=== PATIENT | female | born 1950 | race Caucasian/White ===

== ENCOUNTER 2018-02-03 06:29 | Observation (INO) ==
[2018-02-03] MEDS ORDERED: ASPIRIN 81 MG TAB.CHEW ONE (06:34)
[2018-02-03] MEDS ORDERED: DILTIAZEM 25 MG/5 ML VIAL IV ONE (06:40)
[2018-02-03] MEDS ORDERED: DILTIAZEM 125 MG in DEXTROSE 5% IN WATER 100 ML IV SCH ×2 (06:45→18:45)
--- NOTE | 2018-02-03 06:50 | Emergency Department Note ---
Arrhythmia/Palpitations HPI - General Chief Complaint: Arrhythmia/Palpitations Stated Complaint: arrhythmia Time Seen by Provider: 02/03/18 06:45 Source: patient Mode of arrival: ambulatory Limitations: no limitations - History of Present Illness HPI Narrative: 67-year-old female with a history of palpitations that started at approximately 1:00 this morning. Denies any chest pain. She has had a history of these palpitations over the past year and she was being worked up by Dr. Cook most recently had an echo last month. Which was normal. She states that normally the palpitations last for short time. She denies any shortness of breath there is no chest pain and there is no radiation of pain. She is currently on no medications or blood thinners. She is not in any acute distress. Of her heart rate is tachycardic running approximately 130 and irregular. Pulse ox is 99% blood pressure is 191/149 alert cooperative oriented 3 - Related Data Allergies Allergy/AdvReac Type Severity Reaction Status Date / Time No Known Drug Allergies Allergy Unverified 02/03/18 06:30 Review of Systems All systems ED: reviewed and negative except as stated. Constitutional: Denies: fever, chills Eyes: Denies: eye pain ENT ED: Denies: ear pain, throat pain Cardiovascular: Reports: chest pain, palpitations. Denies: dyspnea on exertion , orthopnea, edema, syncope, paroxysmal nocturnal dyspnea Respiratory: Denies: shortness of breath, cough, wheezes, phlegm Gastrointestinal: Reports: abdominal pain. Denies: nausea, vomiting Genitourinary: Denies: dysuria, urgency, frequency Musculoskeletal: Denies: back pain, joint swelling Integumentary: Denies: rash, lesions Neurological: Denies: headache Psychiatric: Denies: anxiety, depression Endocrine: Denies: fatigue Hematological/Lymphatic: Denies: easy bleeding Past Medical History - Past Medical History Medical history: Reports: non-contributory Surgical history ED: Reports: non-contributory - Social History smoking status: Never smoker Alcohol use: Reports: Rarely Drug use: Reports: none Physical Exam Limitations: no limitations General appearance: alert Head: atraumatic Eye: Present: PERRL ENT: normal exam, normal oropharynx Neck: Present: normal inspection, full ROM. Absent: trachea midline Chest: Present: normal inspection, symmetric chest wall rise. Absent: tenderness Respiratory: Present: normal lung sounds bilaterally. Absent: respiratory distress, wheezes Cardiovascular: Present: tachycardia, irregular rhythm. Absent: systolic murmur , diastolic murmur, rubs Abdominal: Present: soft. Absent: distention, tenderness, guarding Extremities: Present: normal inspection, full ROM. Absent: tenderness Back: Present: normal inspection, full ROM. Absent: tenderness Neurological: Present: alert, oriented X3 Psychiatric: Present: normal affect, normal mood. Absent: depressed Skin: Absent: warm, dry Course Vital Signs Temperature 98.0 F 02/03/18 06:30 Pulse Rate 125 H 02/03/18 06:30 Respiratory Rate 19 02/03/18 06:30 Blood Pressure 191/149 02/03/18 06:30 Pulse Oximetry (%) 99 02/03/18 06:30 Temperature 98.0 F 02/03/18 06:30 Pulse Rate 69 02/03/18 08:36 Respiratory Rate 17 02/03/18 08:36 Blood Pressure 150/99 02/03/18 08:31 Pulse Oximetry (%) 98 02/03/18 08:36 Arrhythmia/Palpitations - [facility] Narrative Medical decision making narrative: Laboratory tests have returned which are all normal. Patient transferred to the care of Dr. Isaias ontiveros 0900 hrs. Patient still in A. fib but rate controlled 70s and 80s - Lab Data Result diagrams: 02/03/18 07:01 02/03/18 07:01 Lab Results 02/03/18 02/03/18 02/03/18 Range/Units 07:01 07:01 07:01 WBC 7.6 (4.5-11.0) K/mcL RBC 5.13 (4.00-5.20) M/mcL Hgb 15.6 H (12.0-15.0) g/dL Hct 46.0 (36.0-48.0) % MCV 89.7 (80.0-100.0) fL MCH 30.3 (26.0-34.0) pg MCHC 33.8 (31.0-36.0) g/dL RDW 13.0 (11.5-14.5) % Plt Count 192 (140-440) K/mcL MPV 11.3 H (7.4-10.4) fL Gran % 66.7 (38.0-78.0) % Lymph % (Auto) 21.9 (15.5-49.0) % Esmeralda % (Auto) 8.8 (1.0-12.0) % Eos % (Auto) 2.3 (0.0-7.0) % Baso % (Auto) 0.3 (0.0-2.0) % Gran # 5.1 (1.8-8.0) K/mcL Lymph # (Auto) 1.7 (1.5-4.8) K/mcL Esmeralda # (Auto) 0.7 (0.1-0.9) K/mcL Eos # (Auto) 0.2 (0.0-0.7) K/mcL Baso # (Auto) 0 (0.0-0.3) K/mcL Sodium 142 (133-145) mmol/L Potassium 3.6 (3.3-5.1) mmol/L Chloride 101 (96-108) mmol/L Carbon Dioxide 26 (22-30) mmol/L Anion Gap 15.0 (8-16) BUN 28 H (8-23) mg/dl Creatinine 0.8 (0.6-1.1) mg/dl GFR Calculation 77 Glucose 113 H (70-105) mg/dL Calcium 9.1 (8.6-10.4) mg/dl Magnesium 2.1 (1.6-2.5) mg/dL Total Bilirubin 0.5 (0.0-1.0) mg/dL AST 20 (0-37) U/l ALT 41 H (0-40) U/l Alkaline Phosphatase 111 (39-117) U/L Total Creatine Kinase 74 (24-170) IU/L CK-MB (CK-2) 2.2 (0-2.9) ng/ml Troponin T < 0.01 (0-0.03) ng/ml Total Protein 7.3 (5.9-8.4) gm/dL Albumin 3.9 (3.2-5.2) gm/dL Globulin 3.4 (2.2-3.7) gm/dL Albumin/Globulin Ratio 1.1 (1.0-2.3) TSH (0.27-5.01) uIU/ml 02/03/18 Range/Units 07:01 WBC (4.5-11.0) K/mcL RBC (4.00-5.20) M/mcL Hgb (12.0-15.0) g/dL Hct (36.0-48.0) % MCV (80.0-100.0) fL MCH (26.0-34.0) pg MCHC (31.0-36.0) g/dL RDW (11.5-14.5) % Plt Count (140-440) K/mcL MPV (7.4-10.4) fL Gran % (38.0-78.0) % Lymph % (Auto) (15.5-49.0) % Esmeralda % (Auto) (1.0-12.0) % Eos % (Auto) (0.0-7.0) % Baso % (Auto) (0.0-2.0) % Gran # (1.8-8.0) K/mcL Lymph # (Auto) (1.5-4.8) K/mcL Esmeralda # (Auto) (0.1-0.9) K/mcL Eos # (Auto) (0.0-0.7) K/mcL Baso # (Auto) (0.0-0.3) K/mcL Sodium (133-145) mmol/L Potassium (3.3-5.1) mmol/L Chloride (96-108) mmol/L Carbon Dioxide (22-30) mmol/L Anion Gap (8-16) BUN (8-23) mg/dl Creatinine (0.6-1.1) mg/dl GFR Calculation Glucose (70-105) mg/dL Calcium (8.6-10.4) mg/dl Magnesium (1.6-2.5) mg/dL Total Bilirubin (0.0-1.0) mg/dL AST (0-37) U/l ALT (0-40) U/l Alkaline Phosphatase (39-117) U/L Total Creatine Kinase (24-170) IU/L CK-MB (CK-2) (0-2.9) ng/ml Troponin T (0-0.03) ng/ml Total Protein (5.9-8.4) gm/dL Albumin (3.2-5.2) gm/dL Globulin (2.2-3.7) gm/dL Albumin/Globulin Ratio (1.0-2.3) TSH 2.32 (0.27-5.01) uIU/ml Disposition Pt seen by SAFETY TECHNICIAN/PA only: No Referrals: Monet Cook MD [Primary Care Provider] -
[2018-02-03] MEDS ORDERED: ASPIRIN 81 MG TAB.CHEW CHEWED ONE (07:07)
--- NOTE | 2018-02-03 07:19 | XRay Report ---
INDICATION: Arrhythmia TECHNIQUE: AP chest x-ray,portable upright COMPARISON: None FINDINGS:Lungs are negative. No parenchymal infiltrate or mass. Cardiac silhouette and vascular pattern are normal. No pulmonary edema. No pulmonary congestion. No acute abnormality IMPRESSION: Negative AP chest x-ray Interpreted and Authenticated by: Jose Maria Ruiz 02/03/18
[2018-02-03 07:42] LABS: Basophils # (Auto) 0 K/mcL (0.0-0.3); Basophils % (Auto) 0.3 % (0.0-2.0); Eosinophils # (Auto) 0.2 K/mcL (0.0-0.7); Eosinophils % (Auto) 2.3 % (0.0-7.0); Granulocytes % (Auto) 66.7 % (38.0-78.0); Lymphocytes # (Auto) 1.7 K/mcL (1.5-4.8); Lymphocytes % (Auto) 21.9 % (15.5-49.0); Mean Cell Volume 89.7 fL (80.0-100.0); Mean Corpuscular HGB Conc 33.8 g/dL (31.0-36.0); Mean Corpuscular Hemoglobin 30.3 pg (26.0-34.0); Monocytes # (Auto) 0.7 K/mcL (0.1-0.9); Monocytes % (Auto) 8.8 % (1.0-12.0); Platelet Count 192 K/mcL (140-440); RBC 5.13 M/mcL (4.00-5.20)
[2018-02-03 08:04] LABS: ALT/SGPT 41 U/l (0-40); Albumin 3.9 gm/dL (3.2-5.2); Albumin/Globulin Ratio 1.1 (1.0-2.3); Alkaline Phosphatase 111 U/L (39-117); Blood Urea Nitrogen 28 mg/dl (8-23); Creatine Kinase 74 IU/L (24-170); Creatine Kinase MB 2.2 ng/ml (0-2.9)
--- NOTE | 2018-02-03 10:12 | Emergency Department Note ---
Arrhythmia/Palpitations HPI - General Chief Complaint: Arrhythmia/Palpitations Stated Complaint: arrhythmia Time Seen by Provider: 02/03/18 06:45 Source: patient Mode of arrival: ambulatory Limitations: no limitations - Related Data Allergies Allergy/AdvReac Type Severity Reaction Status Date / Time No Known Drug Allergies Allergy Unverified 02/03/18 06:30 Review of Systems Constitutional: Denies: fever, chills Eyes: Denies: eye pain ENT ED: Denies: ear pain, throat pain Cardiovascular: Reports: chest pain, palpitations. Denies: dyspnea on exertion , orthopnea, edema, syncope, paroxysmal nocturnal dyspnea Respiratory: Denies: shortness of breath, cough, wheezes, phlegm Gastrointestinal: Reports: abdominal pain. Denies: nausea, vomiting Genitourinary: Denies: dysuria, urgency, frequency Musculoskeletal: Denies: back pain, joint swelling Integumentary: Denies: rash, lesions Neurological: Denies: headache Psychiatric: Denies: anxiety, depression Endocrine: Denies: fatigue Hematological/Lymphatic: Denies: easy bleeding Past Medical History - Past Medical History Medical history: Reports: non-contributory Surgical history ED: Reports: non-contributory - Social History smoking status: Never smoker Alcohol use: Reports: Rarely Drug use: Reports: none Physical Exam Limitations: no limitations General appearance: alert Course Vital Signs Temperature 98.0 F 02/03/18 06:30 Pulse Rate 125 H 02/03/18 06:30 Respiratory Rate 19 02/03/18 06:30 Blood Pressure 191/149 02/03/18 06:30 Pulse Oximetry (%) 99 02/03/18 06:30 Temperature 98.0 F 02/03/18 06:30 Pulse Rate 97 H 02/03/18 10:10 Respiratory Rate 12 02/03/18 10:10 Blood Pressure 157/86 02/03/18 10:01 Pulse Oximetry (%) 97 02/03/18 10:10 Arrhythmia/Palpitations - MDM Narrative Medical decision making narrative: This patient's atrial fib is reasonably can controlled with a heart rate between 80 and 100 on diltiazem 10 mg an hour. This is a new diagnosis for this patient. She did have an echocardiogram a week ago. We will admit her to telemetry for observation. - Lab Data Lab results reviewed: Yes I reviewed the patient's lab results. Result diagrams: 02/03/18 07:01 02/03/18 07:01 Lab Results 02/03/18 02/03/18 02/03/18 Range/Units 07:01 07:01 07:01 WBC 7.6 (4.5-11.0) K/mcL RBC 5.13 (4.00-5.20) M/mcL Hgb 15.6 H (12.0-15.0) g/dL Hct 46.0 (36.0-48.0) % MCV 89.7 (80.0-100.0) fL MCH 30.3 (26.0-34.0) pg MCHC 33.8 (31.0-36.0) g/dL RDW 13.0 (11.5-14.5) % Plt Count 192 (140-440) K/mcL MPV 11.3 H (7.4-10.4) fL Gran % 66.7 (38.0-78.0) % Lymph % (Auto) 21.9 (15.5-49.0) % Major % (Auto) 8.8 (1.0-12.0) % Eos % (Auto) 2.3 (0.0-7.0) % Baso % (Auto) 0.3 (0.0-2.0) % Gran # 5.1 (1.8-8.0) K/mcL Lymph # (Auto) 1.7 (1.5-4.8) K/mcL Major # (Auto) 0.7 (0.1-0.9) K/mcL Eos # (Auto) 0.2 (0.0-0.7) K/mcL Baso # (Auto) 0 (0.0-0.3) K/mcL Sodium 142 (133-145) mmol/L Potassium 3.6 (3.3-5.1) mmol/L Chloride 101 (96-108) mmol/L Carbon Dioxide 26 (22-30) mmol/L Anion Gap 15.0 (8-16) BUN 28 H (8-23) mg/dl Creatinine 0.8 (0.6-1.1) mg/dl GFR Calculation 77 Glucose 113 H (70-105) mg/dL Calcium 9.1 (8.6-10.4) mg/dl Magnesium 2.1 (1.6-2.5) mg/dL Total Bilirubin 0.5 (0.0-1.0) mg/dL AST 20 (0-37) U/l ALT 41 H (0-40) U/l Alkaline Phosphatase 111 (39-117) U/L Total Creatine Kinase 74 (24-170) IU/L CK-MB (CK-2) 2.2 (0-2.9) ng/ml Troponin T < 0.01 (0-0.03) ng/ml Total Protein 7.3 (5.9-8.4) gm/dL Albumin 3.9 (3.2-5.2) gm/dL Globulin 3.4 (2.2-3.7) gm/dL Albumin/Globulin Ratio 1.1 (1.0-2.3) TSH (0.27-5.01) uIU/ml 02/03/18 Range/Units 07:01 WBC (4.5-11.0) K/mcL RBC (4.00-5.20) M/mcL Hgb (12.0-15.0) g/dL Hct (36.0-48.0) % MCV (80.0-100.0) fL MCH (26.0-34.0) pg MCHC (31.0-36.0) g/dL RDW (11.5-14.5) % Plt Count (140-440) K/mcL MPV (7.4-10.4) fL Gran % (38.0-78.0) % Lymph % (Auto) (15.5-49.0) % Major % (Auto) (1.0-12.0) % Eos % (Auto) (0.0-7.0) % Baso % (Auto) (0.0-2.0) % Gran # (1.8-8.0) K/mcL Lymph # (Auto) (1.5-4.8) K/mcL Major # (Auto) (0.1-0.9) K/mcL Eos # (Auto) (0.0-0.7) K/mcL Baso # (Auto) (0.0-0.3) K/mcL Sodium (133-145) mmol/L Potassium (3.3-5.1) mmol/L Chloride (96-108) mmol/L Carbon Dioxide (22-30) mmol/L Anion Gap (8-16) BUN (8-23) mg/dl Creatinine (0.6-1.1) mg/dl GFR Calculation Glucose (70-105) mg/dL Calcium (8.6-10.4) mg/dl Magnesium (1.6-2.5) mg/dL Total Bilirubin (0.0-1.0) mg/dL AST (0-37) U/l ALT (0-40) U/l Alkaline Phosphatase (39-117) U/L Total Creatine Kinase (24-170) IU/L CK-MB (CK-2) (0-2.9) ng/ml Troponin T (0-0.03) ng/ml Total Protein (5.9-8.4) gm/dL Albumin (3.2-5.2) gm/dL Globulin (2.2-3.7) gm/dL Albumin/Globulin Ratio (1.0-2.3) TSH 2.32 (0.27-5.01) uIU/ml - Radiology Data Radiology results reviewed: Yes I reviewed the patient's radiology results. Disposition Pt seen by TECHNICAL PROJECT COORDINATOR/PA only: No Clinical Impression: Atrial fibrillation Disposition: Xfer As Outpt/Obs ([facility]) Condition: Good Instructions: Atrial Fibrillation (ED) Referrals: Monet Cook MD [Primary Care Provider] - Time of Disposition: 10:12
[2018-02-03] MEDS ORDERED: ONDANSETRON 4 MG/2 ML VIAL IV PRN (11:42)
[2018-02-03] MEDS ORDERED: traZODone HCL 50 MG TABLET PO PRN (11:42)
[2018-02-03] MEDS ORDERED: guaiFENesin/CODEINE 10 ML UDC PO PRN (11:42)
[2018-02-03] MEDS ORDERED: POTASSIUM CHLORIDE 20 MEQ PACKET PO PRN (11:42)
[2018-02-03] MEDS ORDERED: ACETAMINOPHEN 1,000 MG/100 ML BOTTLE IV PRN (11:42)
[2018-02-03] MEDS ORDERED: MAGNESIUM SULFATE 2 GM/50 ML BAG IV PRN (11:42)
[2018-02-03] MEDS ORDERED: DILTIAZEM 125 MG in 0.9 % SODIUM CHLORIDE 100 ML IV SCH (11:42)
[2018-02-03] MEDS ORDERED: ACETAMINOPHEN 325 MG TABLET PO PRN (11:42)
[2018-02-03 12:07] LABS: C-Reactive Protein < 0.3 mg/dl (0.0-0.8)
--- NOTE | 2018-02-03 12:53 | Internal Med History&Physical ---
Medical - H&P: [facility] Patient information: Note initiated : 02/03/18 at 12:46 pm Service Date, if different from initiated Date: [] Patient: Maria E Sidhu 67 y/o F admitted on 02/03/18 for Arrhythmia. Chief Complaint: Palpitations/lightheadedness History of present illness: Ms. Sidhu is a 67 year old F comes in with racing heart rate/palpitations that started around 1 AM last night. Patient has history of intermittent atrial fibrillation and has been seen by Dr. Monet Cook. Patient also carries a history of poorly controlled hypertension. She comes into the ER with worsening dizziness lightheadedness and feeling very weak and anxious. Outpatient workup was significant for atrial fibrillation with RVR with rate around 140s. Patient was started on diltiazem drip. Patient notably had a echocardiogram done last week which shows EF 65% with diastolic dysfunction. No valvular abnormality. Patient denies rapid weight loss or heat intolerance or tremors. Patient denies changes in medication including taking [id number] medications. She denies chest pain shortness of breath or lower extremity swelling or recent surgery. Patient denies history of bleeding or clotting disorder. Patient denies prior history of stroke. She denies smoking or estrogen supplements. She has been Drinking wine for a while but quit 2 months ago. she cannot endorse to any event that might have triggered her sometimes but does endorse that taking deep breaths and drinking water helps with the symptoms. She is quite anxious and uses propranolol for symptoms. She is due for hip replacement surgery for her degenerative joint joint disease. REVIEW OF SYSTEMS Other than that a 10 point review of system was performed and is negative except for what is discussed above Medical - H&P: PM Medical history: poorly controlled hypertension Anxiety/panic attacks History of intermittent atrial fibrillation degenerative joint disease Medical - H&P: Meds Home Medications Medication Instructions Recorded Confirmed Type Propranolol HCl [Inderal Xl] 120 mg PO DAILY 02/03/18 02/03/18 History Valsartan/Hydrochlorothiazide 1 each PO DAILY 02/03/18 02/03/18 History [Valsartan-Hctz 160-12.5 mg Tab] Diltiazem HCl [Diltiazem 24Hr Cd] 120 mg PO DAILY #30 cap.er.24h 02/04/18 Rx Warfarin [Coumadin] 5 mg PO DAILY #30 tab 02/04/18 Rx Allergies Allergy/AdvReac Type Severity Reaction Status Date / Time No Known Drug Allergies Allergy Unverified 02/03/18 06:30 Medical - H&P: Exam - Constitutional Vitals: Temp Pulse Resp BP Pulse Ox 98.0 F 71 18 132/89 97 02/03/18 11:43 02/03/18 11:43 02/03/18 11:43 02/03/18 11:43 02/03/18 11:43 General appearance: average body habitus, no acute distress Exam: minimally anxious Pupils symmetric oral cavity dry no eardischarge Head normocephalic/atraumatic Neck no lymphadenopathy S1 and S2 irregular rhythm no murmur chest clear to auscultation bilaterally Abdomen soft nontender Lower extremity no cyanosis clubbing no lymphedema Skin no suspicious lesion psych alert cooperative Neuro nonfocal Medical - H&P: Reslt - Labs CBC & Chem 7: 02/04/18 03:30 02/04/18 03:30 Labs: Short CBC 02/03/18 Range/Units 07:01 WBC 7.6 (4.5-11.0) K/mcL Hgb 15.6 H (12.0-15.0) g/dL Hct 46.0 (36.0-48.0) % Plt Count 192 (140-440) K/mcL BMP 02/03/18 07:01 Sodium 142 Potassium 3.6 Chloride 101 Carbon Dioxide 26 BUN 28 H Creatinine 0.8 Glucose 113 H Calcium 9.1 Cardiac Enzymes 02/03/18 02/03/18 Range/Units 07:01 07:01 Total Creatine Kinase 74 (24-170) IU/L CK-MB (CK-2) 2.2 (0-2.9) ng/ml Troponin T < 0.01 (0-0.03) ng/ml Liver Function 02/03/18 Range/Units 07:01 Total Bilirubin 0.5 (0.0-1.0) mg/dL AST 20 (0-37) U/l ALT 41 H (0-40) U/l Alkaline Phosphatase 111 (39-117) U/L Albumin 3.9 (3.2-5.2) gm/dL Medical - H&P: A/P (1) Atrial fibrillation with RVR Current visit: Yes Status: Acute Assessment- 67-year-old with atrial fibrillation with RVR. * A. fib with RVR- rate controlled on diltiazem drip. Transition to oral diltiazem. Echocardiogram reviewed. No valvular lesions/normal EF. Evidence of diastolic dysfunction. chads score 2 mandating anticoagulation.Likely secondary to suboptimally controlled hypertension * hypertension-continue existing medications * anxiety disorder-continue home dose propranolol * Full code * Prophylaxis heparin plan * telemetry observation admit * Diltiazem drip * Transition to oral rate control measures * Pre-existing medical condition management as above (2) Atrial fibrillation Current visit: Yes Status: Acute Medical - H&P: Qual - VTE Deep Vein Thrombosis/Pulmonary Embolism Present on Admission: No
[2018-02-03] MEDS: METOPROLOL TARTRATE 5 MG/5 ML VIAL IV SCH ×3 (13:17→13:38)
[2018-02-03] MEDS: 0.9 % SODIUM CHLORIDE 10 ML SYRINGE IV SCH ×2 (13:38→21:24)
[2018-02-03] MEDS: 0.9 % SODIUM CHLORIDE 500 ML IV SCH (13:50)
[2018-02-03] MEDS: DILTIAZEM 30 MG TABLET PO SCH (17:23)
[2018-02-03] MEDS ORDERED: DILTIAZEM 125 MG in 0.9 % SODIUM CHLORIDE 100 ML IV PRN (17:45)
[2018-02-03] MEDS ORDERED: SENNOSIDES/DOCUSATE SODIUM 1 TAB TABLET PO SCH (21:00)
[2018-02-03] MEDS: HEPARIN 5,000 UNIT/ML VIAL SQ SCH (21:23)
[2018-02-03] MEDS: DOCUSATE SODIUM 100 MG CAPSULE PO SCH (21:24)
[2018-02-04] MEDS: DILTIAZEM 30 MG TABLET PO SCH ×2 (00:08→05:54)
[2018-02-04 04:56] LABS: Mean Cell Volume 90.3 fL (80.0-100.0); Mean Corpuscular HGB Conc 33.8 g/dL (31.0-36.0); Mean Corpuscular Hemoglobin 30.5 pg (26.0-34.0); Platelet Count 181 K/mcL (140-440); RBC 5.16 M/mcL (4.00-5.20); Red Cell Distribution Width 13.4 % (11.5-14.5)
[2018-02-04 05:29] LABS: ALT/SGPT 31 U/l (0-40); Albumin 3.7 gm/dL (3.2-5.2); Albumin/Globulin Ratio 1.2 (1.0-2.3); Alkaline Phosphatase 98 U/L (39-117); Bilirubin,Direct < 0.2 mg/dL (0.0-0.3); Blood Urea Nitrogen 27 mg/dl (8-23); Gamma Glutamyl Transpeptidase 19 U/L (5-36); Uric Acid 5.4 mg/dL (2.5-8.0)
[2018-02-04 05:35] LABS: Basophils % (Manual) 1 % (0-2); Eosinophils % (Manual) 2 % (0-7); Lymphocytes % 39 % (15-49); Monocytes % (Manual) 7 % (1-12); Platelet Estimate NORMAL (NORMAL); RBC Morphology NORMAL (NORMAL); Segmented Neutrophils % 50 % (38-78)
[2018-02-04] MEDS: 0.9 % SODIUM CHLORIDE 10 ML SYRINGE IV SCH ×4 (07:00→14:11)
[2018-02-04] MEDS ORDERED: DILTIAZEM 120 MG CAP.XL.24H PO ONE (07:05)
[2018-02-04] MEDS ORDERED: WARFARIN 5 MG TABLET PO ONE (07:06)
--- NOTE | 2018-02-04 07:22 | Discharge Summary ---
Medical - DS: Prov Patient information: Note initiated : 02/04/18 at 7:12 am Service Date, if different from initiated Date: [] Patient: Maria E Sidhu 67 y/o F admitted on 02/03/18 for Arrhythmia. Chief Complaint: [] Date of admission: 02/03/18 11:38 Discharge date: 02/04/18 Primary care physician: Monet Cook Consults: 02/03/18 10:09 Consult to Physician [CONS] Stat Comment: Consulting Provider: Pete Moore Reason For Exam: Physician to Consult Medical - DS: Meds - Discharge Medications Prescriptions: Diltiazem HCl [Diltiazem 24Hr Cd] 120 mg PO DAILY #30 cap.er.24h Warfarin [Coumadin] 5 mg PO DAILY #30 tab Active and Home Medications: Home Medications Propranolol HCl [Inderal Xl] 120 mg PO DAILY 02/03/18 [History Confirmed Last Taken 02/02/18] Valsartan/Hydrochlorothiazide [Valsartan-Hctz 160-12.5 mg Tab] 1 each PO DAILY 02/03/18 [History Confirmed 02/03/18 Last Taken 02/02/18] Diltiazem HCl [Diltiazem 24Hr Cd] 120 mg PO DAILY #30 cap.er.24h 02/04/18 [Rx Last Taken Unknown] Warfarin [Coumadin] 5 mg PO DAILY #30 tab 02/04/18 [Rx Last Taken Unknown] Medical - DS: Hosp Hospital course: DISCHARGE DIAGNOSIS * A. fib with RVR- rate controlled on diltiazem drip. transitioned to diltiazem extended release. Start Coumadin in light of chads score 2 and high risk CVA. echocardiogram no evidence of valvular dysfunction. Evidence of diastolic dysfunction. chads score 2 mandating anticoagulation. patient will require outpatient cardiology follow-up for electrophysiologic study for possibly a flutter ablation if indicated. PCP to coordinate outpatient cardiology follow-up * poorly controlled hypertension-continue existing medications. start Cardizem CD. Systolics around 120 * anxiety disorder-continue as needed anxiolytics BRIEF HOSPITAL COURSE Ms. Sidhu is a 67 year old F comes in with racing heart rate/palpitations that started around 1 AM last night. Patient has history of intermittent atrial fibrillation and has been seen by Dr. Monet Black. Patient also carries a history of poorly controlled hypertension. She comes into the ER with worsening dizziness lightheadedness and feeling very weak and anxious. Outpatient workup was significant for atrial fibrillation with RVR with rate around 140s. Patient was started on diltiazem drip. Patient notably had a echocardiogram done last week which shows EF 65% with diastolic dysfunction. No valvular abnormality. Patient denies rapid weight loss or heat intolerance or tremors. Patient denies changes in medication including taking [id number] medications. She denies chest pain shortness of breath or lower extremity swelling or recent surgery. Patient denies history of bleeding or clotting disorder. Patient denies prior history of stroke. She denies smoking or estrogen supplements. She has been Drinking wine for a while but quit 2 months ago. February 04-patient doing well. No overnight events. No concerns per staff. Tolerating diet. Heart rate stable between mid 40s to 70s. Diltiazem dose lowered from 240 to 120s. Anticoagulation started on Coumadin in light of chads score 2. Patient will follow with primary care physician for further optimization of A. fib flutter management/Coumadin dosing based on INR. Patient will need cardiology follow-up as outpatient Discharge diagnosis: . - Time Spent with Patient Total time spent providing and/or coordinating discharge services: Greater than 30 minutes Medical - DS: Exam - Constitutional Vitals: Vital Signs Temp Pulse Pulse Resp BP BP Pulse Ox 02/04/18 06:43 97.6 F 16 140/85 98 02/04/18 04:00 97.7 F 64 12 128/81 96 02/04/18 00:01 113/71 02/03/18 23:59 98.3 F 18 113/71 95 02/03/18 23:46 110/82 02/03/18 23:32 106/78 02/03/18 23:16 114/69 02/03/18 23:01 111/62 02/03/18 22:48 118/57 02/03/18 22:31 130/64 02/03/18 22:16 113/64 02/03/18 22:01 117/72 02/03/18 21:46 116/78 02/03/18 21:31 136/85 02/03/18 21:16 118/72 02/03/18 21:01 111/70 03/22/18 20:46 123/64 02/03/18 20:31 112/76 02/03/18 20:16 119/75 18 20:01 133/73 18 19:46 122/73 18 19:31 124/82 02/03/18 19:16 122/72 18 19:01 97.7 F 126/75 18 18:46 131/94 18 18:31 113/80 18 18:16 118/73 18 18:00 134/73 18 17:46 108/58 18 17:31 114/82 18 17:16 122/77 18 17:01 122/78 18 16:46 121/72 18 16:31 119/64 18 16:16 117/71 18 16:01 98.6 F 16 109/64 96 18 15:53 116/76 18 15:42 97.3 F 16 128/72 96 18 15:31 125/70 18 15:15 128/72 18 15:10 113/73 18 15:01 108/74 18 14:45 140/114 18 14:31 130/78 18 14:16 112/76 18 14:01 117/98 18 13:46 135/70 18 13:36 141/79 18 13:31 146/79 18 13:27 131/83 18 13:16 136/76 18 13:01 135/75 18 12:46 160/99 18 12:31 124/80 18 12:23 146/104 18 12:16 167/93 18 12:10 71 18 131/118 95 18 11:46 132/89 18 11:43 98.0 F 71 18 132/89 97 18 11:38 98.9 F 88 16 165/89 97 02/03/18 11:35 18 132/89 02/03/18 11:31 44 L 12 132/89 97 02/03/18 11:15 13 147/90 02/03/18 11:01 18 121/84 02/03/18 10:46 26 H 148/93 02/03/18 10:38 15 02/03/18 10:31 22 153/83 02/03/18 10:16 88 17 157/83 97 02/03/18 10:10 97 H 12 97 02/03/18 10:01 19 157/86 02/03/18 09:31 93 H 21 151/85 98 02/03/18 09:30 89 7 L 96 02/03/18 09:16 66 15 139/75 97 02/03/18 09:01 98 H 15 145/78 97 02/03/18 08:46 90 18 155/86 96 02/03/18 08:36 69 17 98 02/03/18 08:31 137 H 12 150/99 98 02/03/18 08:16 90 18 162/80 99 02/03/18 08:01 66 12 158/113 98 02/03/18 07:51 62 11 L 162/98 98 02/03/18 07:49 74 16 96 02/03/18 07:39 112 H 14 159/125 98 02/03/18 07:25 159/125 98 Intake and Output 02/03/18 02/04/18 02/04/18 21:59 05:59 13:59 Intake Total 811 / 811 180 / 180 Output Total 550 / 550 350 / 350 Balance 261 / 261 -170 / -170 Intake: IV 91 / 91 Sodium Chloride 0.9% 500 ml @ 70 / 70 20 mls/hr IV .Q24H MATTHEW Rx#: [id number] Cardizem 125 mg In Sodium Chloride 0.9% 100 ml @ 5 MG/HR 5 mls/hr IV Q12H MATTHEW Rx#: [id number] Oral 720 / 720 180 / 180 Output: Void Amount 550 / 550 350 / 350 Other: # Voids 1 0 Weight 197 lb 8 oz Medical - DS: Data Labs on day of discharge: Labs from last 24 hours 02/04/18 02/04/18 02/03/18 03:30 03:30 07:01 WBC 7.0 RBC 5.16 Hgb 15.7 H Hct 46.6 MCV 90.3 MCH 30.5 MCHC 33.8 RDW 13.4 Plt Count 181 MPV 10.8 H Gran % Lymph % (Auto) Lyman % (Auto) Eos % (Auto) Baso % (Auto) Gran # Lymph # (Auto) Lyman # (Auto) Eos # (Auto) Baso # (Auto) Total Counted 100 Seg Neutrophils % 50 Band Neutrophils % Not Reportable Lymphocytes % 39 Monocytes % (Manual) 7 Eosinophils % (Manual) 2 Basophils % (Manual) 1 Reactive Lymphocytes 1 Platelet Estimate Normal RBC Morphology Normal ESR Sodium 145 Potassium 3.4 Chloride 106 Carbon Dioxide 24 Anion Gap 15.0 BUN 27 H Creatinine 0.7 GFR Calculation 91 Glucose 92 Uric Acid 5.4 Calcium 9.0 Phosphorus 3.1 Magnesium 2.2 Total Bilirubin 0.4 Direct Bilirubin < 0.2 GGT 19 AST 17 ALT 31 Alkaline Phosphatase 98 Lactate Dehydrogenase 180 Total Creatine Kinase CK-MB (CK-2) Troponin T C-Reactive Protein < 0.3 Total Protein 6.8 Albumin 3.7 Globulin 3.1 Albumin/Globulin Ratio 1.2 Triglycerides 65 TSH 1.36 02/03/18 02/03/18 02/03/18 07:01 07:01 07:01 WBC RBC Hgb Hct MCV MCH MCHC RDW Plt Count MPV Gran % Lymph % (Auto) Lyman % (Auto) Eos % (Auto) Baso % (Auto) Gran # Lymph # (Auto) Lyman # (Auto) Eos # (Auto) Baso # (Auto) Total Counted Seg Neutrophils % Band Neutrophils % Lymphocytes % Monocytes % (Manual) Eosinophils % (Manual) Basophils % (Manual) Reactive Lymphocytes Platelet Estimate RBC Morphology ESR 23 H Sodium Potassium Chloride Carbon Dioxide Anion Gap BUN Creatinine GFR Calculation Glucose Uric Acid Calcium Phosphorus Magnesium Total Bilirubin Direct Bilirubin GGT AST ALT Alkaline Phosphatase Lactate Dehydrogenase Total Creatine Kinase CK-MB (CK-2) Troponin T < 0.01 C-Reactive Protein Total Protein Albumin Globulin Albumin/Globulin Ratio Triglycerides TSH 2.32 02/03/18 02/03/18 07:01 07:01 WBC 7.6 RBC 5.13 Hgb 15.6 H Hct 46.0 MCV 89.7 MCH 30.3 MCHC 33.8 RDW 13.0 Plt Count 192 MPV 11.3 H Gran % 66.7 Lymph % (Auto) 21.9 Lyman % (Auto) 8.8 Eos % (Auto) 2.3 Baso % (Auto) 0.3 Gran # 5.1 Lymph # (Auto) 1.7 Lyman # (Auto) 0.7 Eos # (Auto) 0.2 Baso # (Auto) 0 Total Counted Seg Neutrophils % Band Neutrophils % Lymphocytes % Monocytes % (Manual) Eosinophils % (Manual) Basophils % (Manual) Reactive Lymphocytes Platelet Estimate RBC Morphology ESR Sodium 142 Potassium 3.6 Chloride 101 Carbon Dioxide 26 Anion Gap 15.0 BUN 28 H Creatinine 0.8 GFR Calculation 77 Glucose 113 H Uric Acid Calcium 9.1 Phosphorus Magnesium 2.1 Total Bilirubin 0.5 Direct Bilirubin GGT AST 20 ALT 41 H Alkaline Phosphatase 111 Lactate Dehydrogenase Total Creatine Kinase 74 CK-MB (CK-2) 2.2 Troponin T C-Reactive Protein Total Protein 7.3 Albumin 3.9 Globulin 3.4 Albumin/Globulin Ratio 1.1 Triglycerides TSH Medical - DS: A/P - Patient/Caregiver Discharge Instructions Activity: increase activity as tolerated Diet: Regular Diet Additional Instructions: Follow-up PCP in 5 days follow-up cardiology in 2 weeks for evaluation of fibrillation on A flutter. To be scheduled by primary care physician. I recommend SNF physician to check INR, CBC BMP UA as a posthospital follow-up and Chest x-ray in 1 week. coumadin dosing based on INR. CHADS score 2. high risk CVA diltiazem cd 120 daily Continue aggressive bowel regimen to prevent constipation Continue fall precautions All meals on chair sitting upright at 90 degrees to prevent aspiration Return to ER if worsening fever chills shortness of breath, diarrhea, bleeding Review risk and side effect profile of medications including diltiazem. Side effect may include mild to severe reaction including low heart rate,dizziness and even which can be prevented by close follow-up with PCP and monitoring for side effects Refrain from smoking and alcohol Continue diet and activity as advised Discussed importance of medication adherence Please review medication list with patient prior to discharge Please schedule follow-up with PCP/Providers prior to discharge and provide printouts Portions of this chart may have been created with [employer] voice recognition software. Occasional wrong-word or ?sound-like? substitutions may have occurred due to the inherent limitations of voice recognition software. Please read the chart carefully and recognize, using context, where the substitutions have occurred. CC- PCP Prescriptions: Diltiazem HCl [Diltiazem 24Hr Cd] 120 mg PO DAILY #30 cap.er.24h Warfarin [Coumadin] 5 mg PO DAILY #30 tab - Problem Maintenance (1) Atrial fibrillation with RVR Status: Acute - Follow up Plan Follow up with: Monet Cook MD [Primary Care Provider] - Disposition: Home, Self-Care Prognosis: Good Rehab Potential: Fair I certify that the patient requires SNF services: No Overall status at discharge: patient is progressing back to baseline Medical - DS: Qual - VTE Deep Vein Thrombosis/Pulmonary Embolism Present on Admission: No
[2018-02-04] MEDS ORDERED: DILTIAZEM 30 MG TABLET PO SCH (08:00)
[2018-02-04] MEDS: DOCUSATE SODIUM 100 MG CAPSULE PO SCH (08:18)
[2018-02-04] MEDS: HEPARIN 5,000 UNIT/ML VIAL SQ SCH (08:18)
[2018-02-04] MEDS ORDERED: MULTIVIT,THER IRON,CA,FA & MIN 1 TABLET PO SCH (09:00)
[2018-02-04] MEDS ORDERED: PROPRANOLOL 60 MG CAP.XL.24H PO SCH (13:45)
[2018-02-04] MEDS: 0.9 % SODIUM CHLORIDE 500 ML IV SCH (14:53)
[2018-02-04] MEDS ORDERED: PNEUMOCOCCAL 23-VAL P-SAC VAC 0.5 ML VIAL IM ONE (16:44)
== END 2018-02-04 17:50 | disposition home or self-care (01) ==
LOC: ICU 06:29 → ED 06:29 → ICU 11:40
PROVIDERS: ADMIT Internal Medicine; ATTEND Internal Medicine

== ENCOUNTER 2018-07-05 06:15 | Inpatient (IN) ==
[2018-06-29 14:38] LABS: Appearance,Urine CLEAR; Bacteria,Urine 0 /hpf (0); Bilirubin,Urine NEG (NEG); Color,Urine YELLOW; Glucose,Urine (UA) NEGATIVE (NEG); Leukocyte Esterase,Urine 25 /uL (NEG); Mucus,Urine MOD /hpf (0); Protein,Urine NEG (NEG); Specific Gravity,Urine 1.023 (1.000-1.035); Urine Amorphous Crystals FEW /hpf (0); Urine Blood 0.03 mg/dL (<0.03); Urine RBC 4 /hpf (0-1); Urine Squamous Epithelial Cell 1 /hpf (0-4); Urine WBC 8 /hpf (0-4); Urobilinogen,Urine NEG (NEG)
[2018-06-29 16:04] LABS: Basophils # (Auto) 0 K/mcL (0.0-0.3); Basophils % (Auto) 0.5 % (0.0-2.0); Eosinophils # (Auto) 0.1 K/mcL (0.0-0.7); Eosinophils % (Auto) 1.5 % (0.0-7.0); Lymphocytes # (Auto) 1.6 K/mcL (1.5-4.8); Lymphocytes % (Auto) 25.5 % (15.5-49.0); Mean Cell Volume 91.1 fL (80.0-100.0); Mean Corpuscular HGB Conc 33.6 g/dL (31.0-36.0); Mean Corpuscular Hemoglobin 30.6 pg (26.0-34.0); Monocytes # (Auto) 0.5 K/mcL (0.1-0.9); Monocytes % (Auto) 8.5 % (1.0-12.0); Platelet Count 197 K/mcL (140-440); RBC 4.87 M/mcL (4.00-5.20); Red Cell Distribution Width 13.7 % (11.5-14.5)
[2018-06-29 16:18] LABS: Blood Urea Nitrogen 27 mg/dl (8-23)
[2018-07-05] MEDS ORDERED: CELECOXIB 200 MG CAPSULE PO SCH (07:00)
[2018-07-05] MEDS ORDERED: ceFAZolin 1 GM VIAL IV SCH (07:00)
[2018-07-05] MEDS ORDERED: 0.9 % SODIUM CHLORIDE 9 ML, KETOROLAC 30 MG, ROPIVACAINE HCL/PF 49.5 ML, EPINEPHrine 0.... IJ SCH (07:00)
[2018-07-05] MEDS ORDERED: PREGABALIN 75 MG CAPSULE PO SCH (07:00)
[2018-07-05] MEDS: oxyCODONE 10 MG TAB.ER.12H PO SCH (07:36)
[2018-07-05 07:38] LABS: Appearance,Urine CLEAR; Bacteria,Urine 0 /hpf (0); Bilirubin,Urine NEG (NEG); Color,Urine YELLOW; Glucose,Urine (UA) NEGATIVE (NEG); Leukocyte Esterase,Urine NEG /uL (NEG); Protein,Urine NEG (NEG); Specific Gravity,Urine 1.017 (1.000-1.035); Urine Blood 0.03 mg/dL (<0.03); Urine RBC 2 /hpf (0-1); Urine Squamous Epithelial Cell 0 /hpf (0-4); Urine WBC 1 /hpf (0-4); Urobilinogen,Urine NEG (NEG)
[2018-07-05] MEDS ORDERED: GLYCOPYRROLATE 0.2 MG/ML VIAL IV ONE (09:10)
[2018-07-05] MEDS ORDERED: ePHEDrine 50 MG/ML AMPUL IV ONE (09:10)
[2018-07-05] MEDS ORDERED: PROPOFOL 200 MG/20 ML VIAL IV ONE (09:10)
[2018-07-05] MEDS ORDERED: METOPROLOL TARTRATE 5 MG/5 ML VIAL IV ONE (09:10)
[2018-07-05] MEDS ORDERED: TRANEXAMIC ACID 1,000 MG/10 ML VIAL IV ONE (09:10)
[2018-07-05] MEDS ORDERED: PHENYLEPHRINE 10 MG/ML VIAL IV ONE (09:10)
[2018-07-05] MEDS ORDERED: MIDAZOLAM 2 MG/2 ML VIAL IV ONE (09:10)
[2018-07-05] MEDS ORDERED: ONDANSETRON 4 MG/2 ML VIAL IV ONE (09:10)
[2018-07-05] MEDS ORDERED: LIDOCAINE HCL/PF 100 MG/5 ML SYRINGE IV ONE (09:10)
[2018-07-05] MEDS ORDERED: SUCCINYLCHOLINE 20 MG/ML ML IV ONE (09:10)
[2018-07-05] MEDS ORDERED: DEXAMETHASONE 10 MG/ML VIAL IV ONE (09:10)
[2018-07-05] MEDS ORDERED: KETAMINE 100 MG/ML ML IV ONE (09:10)
[2018-07-05] MEDS ORDERED: GENTAMICIN SULFATE 800 MG/20 ML VIAL IR ONE (09:41)
[2018-07-05] MEDS ORDERED: METHOCARBAMOL 1,000 MG/10 ML VIAL IV PRN (10:26)
[2018-07-05] MEDS ORDERED: fentaNYL 100 MCG/2 ML VIAL IV PRN (10:26)
[2018-07-05] MEDS ORDERED: PROMETHAZINE 25 MG/ML VIAL IV PRN (10:26)
[2018-07-05] MEDS ORDERED: HYDROmorphone 2 MG/ML VIAL IV PRN (10:26)
[2018-07-05] MEDS ORDERED: ONDANSETRON 4 MG/2 ML VIAL IV PRN (10:26)
[2018-07-05] MEDS ORDERED: IPRATROPIUM/ALBUTEROL 3 ML AMPUL.NEB NEB PRN (10:26)
[2018-07-05] MEDS ORDERED: MEPERIDINE 25 MG/ML SYRINGE IV PRN (10:26)
[2018-07-05] MEDS ORDERED: ACETAMINOPHEN 1,000 MG/100 ML BOTTLE IV ONE (10:26)
[2018-07-05] MEDS ORDERED: LACTATED RINGERS 1,000 ML IV SCH (10:30)
--- NOTE | 2018-07-05 10:37 | Brief Operative Note ---
Date of procedure: 07/05/18 Pre-op diagnosis: right hip oa Post-op diagnosis: same Procedure: right total hip arthroplasty Grafts/Implants: Yes Anesthesia: spinal Complications: none Surgeon: Jose Maria Reaves Soil Specialist: Afua Fernandez Estimated blood loss (cc): 150 Specimens Removed/Pathology: none sent Condition: stable Disposition: PACU
[2018-07-05] MEDS ORDERED: BENZOCAINE/MENTHOL 1 LOZENGE PO PRN (10:40)
[2018-07-05] MEDS ORDERED: METHOCARBAMOL 750 MG TABLET PO PRN (10:40)
[2018-07-05] MEDS ORDERED: BISACODYL 10 MG SUPP.RECT PR PRN (10:40)
[2018-07-05] MEDS ORDERED: KETOROLAC 15 MG/ML VIAL IV PRN (10:40)
[2018-07-05] MEDS ORDERED: POLYETHYLENE GLYCOL 3350 17 GM PACKET PO PRN (10:40)
[2018-07-05] MEDS ORDERED: FLEETS ADULT ENEMA PR PRN (10:40)
[2018-07-05] MEDS ORDERED: MAGNESIUM HYDROXIDE 30 ML ORAL.SUSP PO PRN (10:40)
[2018-07-05] MEDS ORDERED: TRANEXAMIC ACID 1,000 MG/10 ML VIAL IV SCH (10:40)
--- NOTE | 2018-07-05 11:49 | XRay Report ---
HISTORY: Postop right hip arthroplasty FINDINGS: There is a well-positioned right total hip prosthesis. No fracture is present and there are no abnormal soft tissue calcifications. There is gas around the hip due to the surgical procedure. Severe osteoarthritis is present in the left hip with joint space narrowing, spur formation and subchondral cysts. Moderate disc space narrowing and spur formation are present at L4-5. IMPRESSION: Well-positioned right hip prosthesis Interpreted and Authenticated by: Jose Trivedi 07/05/18
--- NOTE | 2018-07-05 11:58 | Operative Note ---
DATE OF OPERATION: 07/05/2018 PREOPERATIVE DIAGNOSIS: Degenerative joint disease, right hip. POSTOPERATIVE DIAGNOSIS: Degenerative joint disease, right hip. PROCEDURE: Right total hip arthroplasty. SURGEON: Lucas Reaves M.D. COOK HELPER JUICE SURGEON: Afua Fernandez PA-C ANESTHESIA: Spinal with LMA assist. ESTIMATED BLOOD LOSS: 100 mL COMPLICATIONS: None noted. SPECIMENS REMOVED: None. DRAINS: None. IMPLANTS: DePuy Rio Frio hole eliminator, DePuy Hickman Gription acetabular shell 54 mm diameter, DePuy femoral Actis Duofix hip prosthesis cementless size 6 standard collar, DePuy BioLox Delta ceramic femoral head, +5 x 36, DePuy Hickman AltrX polyethylene acetabular liner neutral 36 x 54. INDICATIONS: The patient has had a longstanding history of worsening pain in the hip that has failed conservative treatment. Radiographs have confirmed advanced degenerative joint disease. After a long discussion about treatment options, the patient elected to proceed with a hip arthroplasty. The risks and benefits were discussed with the patient in detail including, but not limited to, the risks of anesthesia, problems with the heart or lungs related to anesthesia, infection, compromise or injury to the nerves and blood vessels, deep venous thrombosis, pulmonary embolism, pneumonia, continued pain after surgery, worsening pain or symptoms after surgery, swelling, loss of motion, instability, leg length discrepancy, and need for repeat surgery. DESCRIPTION OF PROCEDURE: The patient was seen in pre-anesthesia waiting room where all questions were answered and the correct side and site were identified and marked. The patient was then brought to the operating room and administered the anesthetic and given pre-operative antibiotics. A time-out was then called. The patient was placed in the lateral decubitus position with all prominences well-padded using the Jimenez frame and the extremity was prepped and draped in the usual sterile fashion. Anesthesia gave the patient 1 gm of tranexamic acid via an intravenous route. A standard posterior approach was made. We dissected through the skin and subcutaneous tissue to the deep fascia. The deep fascia was split in line with the incision and a Charnley retractor was placed. We exposed, tagged, and incised the short external rotators and piriformis tendon and retracted them posteriorly to help protect the sciatic nerve which was palpated throughout the case. We then performed a T-capsulotomy and tagged the capsule edges. Prior to dislocating the hip, we set a length and offset gauge from a Steinmann pin in the iliac wing to a axel on the greater trochanter. The hip was then dislocated and a femoral neck osteotomy was performed to the pre-surgical templated level off the lesser trochanter. The head was removed and sized. We next turned our attention to the acetabulum. Retractors were placed for optimal visualization. A complete labral excision was performed. The capsule was preserved for later closure. We began reaming using anatomic landmarks with the DePuy Hickman acetabular system. We medialized the cup and reamed up to provide good fill and coverage of the trial. When the trial was stable and appropriately positioned with approximately 20 degrees of anteversion and 45 degrees of abduction, we impacted the DePuy Hickman cup and placed a cancellous screw in the posterior-superior quadrant. Osteophytes were removed from around the shell. We placed the trial liner and turned our attention to the femur. We placed retractors for visualization, internally rotated the femur, and established intramedullary access. We broached using the DePuy Tri-Lock stem to a stable platform medial, lateral, and rotationally with the appropriate version. We then performed a calcar reaming off the broach. Trials were then placed and optimized for leg length and stability. We used the leg length and offset guide to confirm our trials. Best stability, length, and offset characteristics were obtained with these sizes. We removed all trials and impacted the polyethylene acetabular liner in a standard fashion after a thorough irrigation. We then impacted the femoral stem to its broached location and placed the head. Final reduction was performed. Again, good stability, leg length, and offset characteristics were noted. We irrigated with three liters of antibiotic saline. We closed the capsule with #2 FiberWire. We placed a deep drain and closed the fascia with a combination of looped #0 Maxon and #0 Vicryl. We closed the subcutaneous tissue and skin in layers out to madelin in the skin. A sterile pressure dressing and abduction wedge was applied. All needle and sponge counts were correct. The patient was transferred to the recovery room in stable condition. MARCELO:katina Job ID: [id number] Doc ID: [id number] Lucas Reaves MD
[2018-07-05] MEDS: 0.9 % SODIUM CHLORIDE 1,000 ML IV SCH ×3 (12:50→20:36)
[2018-07-05] MEDS: 0.9 % SODIUM CHLORIDE 10 ML SYRINGE IV SCH ×2 (14:01→20:35)
[2018-07-05] MEDS: PROPAFENONE 150 MG TABLET PO SCH ×2 (14:16→21:49)
[2018-07-05] MEDS ORDERED: WARFARIN 5 MG TABLET PO ONE ×2 (15:00→15:41)
[2018-07-05] MEDS: ONDANSETRON 4 MG/2 ML VIAL IV PRN ×2 (16:41→22:02)
[2018-07-05] MEDS: ceFAZolin 1 GM VIAL IV SCH (17:06)
[2018-07-05] MEDS: HYDROcodone/APAP 10/325MG TABLET PO PRN (19:26)
[2018-07-05] MEDS: DOCUSATE SODIUM 100 MG CAPSULE PO SCH (20:34)
[2018-07-05] MEDS: OLMESARTAN MEDOXOMIL 20 MG TABLET PO SCH (20:34)
[2018-07-05] MEDS: amLODIPine 10 MG TABLET PO SCH (20:34)
[2018-07-05] MEDS: HYDROCHLOROTHIAZIDE 25 MG TABLET PO SCH (20:34)
[2018-07-05] MEDS: SENNOSIDES 1 TABLET PO SCH (20:35)
[2018-07-05] MEDS ORDERED: [UNRECOGNIZED DRUG - OTHER] PO SCH (21:00)
[2018-07-05] MEDS ORDERED: HYDROCHLOROTHIAZIDE PO SCH (21:00)
[2018-07-05] MEDS ORDERED: OLMESARTAN PO SCH (21:00)
[2018-07-06] MEDS: ceFAZolin 1 GM VIAL IV SCH (00:30)
[2018-07-06] MEDS: ONDANSETRON ODT 4 MG TABLET SL PRN ×3 (00:37→21:25)
[2018-07-06] MEDS: 0.9 % SODIUM CHLORIDE 10 ML SYRINGE IV SCH ×4 (01:04→21:17)
[2018-07-06] MEDS: 0.9 % SODIUM CHLORIDE 1,000 ML IV SCH (01:13)
[2018-07-06] MEDS: PROPAFENONE 150 MG TABLET PO SCH ×3 (05:42→21:50)
[2018-07-06] MEDS: oxyCODONE 10 MG TAB.ER.12H PO SCH (06:30)
[2018-07-06] MEDS: MULTIVIT,THER IRON,CA,FA & MIN 1 TABLET PO SCH (07:20)
[2018-07-06] MEDS: DOCUSATE SODIUM 100 MG CAPSULE PO SCH ×2 (07:21→21:15)
[2018-07-06] MEDS: HYDROcodone/APAP 10/325MG TABLET PO PRN ×3 (07:21→19:56)
--- NOTE | 2018-07-06 07:33 | Orthopedic Progress Note ---
Subjective Patient information: Note initiated : 07/06/18 at 7:31 am Service Date, if different from initiated Date: [] Patient: Maria E Sidhu 67 y/o F admitted on 07/05/18 for Right Total Hip Arthroplasty. Chief Complaint: [POD #1 s/p right MARILYN Doing better today. Mild to moderate pain. Has not yet ambulated. Denies CP, SOB , numbness, tingling, calf pain.] Objective Vital signs: Vital Signs Temp Pulse Resp BP BP Pulse Ox 07/06/18 07:07 97.7 F 79 14 133/73 97 07/06/18 04:00 98.0 F 76 14 133/79 96 07/06/18 00:00 97.2 F 76 14 151/72 97 07/05/18 19:54 97.5 F 76 14 158/80 96 07/05/18 15:37 96.8 F L 66 12 146/75 95 07/05/18 15:35 67 148/69 99 07/05/18 14:00 60 8 L 151/79 100 07/05/18 13:30 56 L 144/83 98 07/05/18 12:45 54 L 12 133/74 98 07/05/18 12:35 97 07/05/18 12:30 55 L 131/77 88 L 07/05/18 12:16 54 L 8 L 124/72 94 07/05/18 12:00 96.1 F L 53 L 16 128/71 93 07/05/18 11:46 97.6 F 56 L 15 122/62 96 07/05/18 11:41 56 L 15 125/63 93 07/05/18 11:36 56 L 10 L 112/63 92 07/05/18 11:31 56 L 10 L 105/67 93 07/05/18 11:26 61 15 110/61 97 07/05/18 11:20 62 16 105/63 98 07/05/18 11:16 62 13 100/53 98 07/05/18 11:11 62 13 98/51 98 07/05/18 11:06 97.6 F 62 16 98/52 96 Intake and Output 07/05/18 07/06/18 07/06/18 21:59 05:59 13:59 Intake Total 971 / 971 1150 / 1150 Output Total 650 / 650 950 / 950 Balance 321 / 321 200 / 200 Intake: IV 971 / 971 500 / 500 Sodium Chloride 0.9% 1,000 ml @ 971 / 971 500 / 500 125 mls/hr IV .Q8H [facility] Rx#: [id number] Oral 650 / 650 Output: Urine Catheter Amount 650 / 650 Void Amount 950 / 950 Other: Meal Dinner Percent of Meal Consumed 100% Feeding Ability Independent Urine Appearance Clear Clear Clear Urine Color Light Bonita Pale Bright Yellow Urine Odor Normal Normal Weight 196 lb 8 oz Intake & Output: Intake & Output 07/05/18 07/06/18 07/06/18 21:59 05:59 13:59 Intake Total 971 / 971 1150 / 1150 Output Total 650 / 650 950 / 950 Balance 321 / 321 200 / 200 Weight 196 lb 8 oz Intake: IV 971 / 971 500 / 500 Sodium Chloride 0.9% 1,000 ml @ 971 / 971 500 / 500 125 mls/hr IV .Q8H [facility] Rx#: [id number] Oral 650 / 650 Output: Urine Catheter Amount 650 / 650 Void Amount 950 / 950 Other: Meal Dinner Percent of Meal Consumed 100% Feeding Ability Independent Urine Appearance Clear Clear Clear Urine Color Light Bon[place] Pale Bright Yellow Urine Odor Normal Normal Incision: Yes healing, No draining, No red, No swollen, No inflamed, Yes clean and dry Incision clean and dry: Yes Dressing: Yes clean, Yes intact Weight bearing status: as tolerated Neurological exam IM: Yes alert, Yes oriented X3, Yes motor sensory intact, Yes neurovascular intact Extremities exam IM: No calf tenderness, Yes normal capillary refill, Yes Foot pink and warm, Yes neurovascular intact - Periperhal Pulses Peripheral pulses: 2+: dorsalis pedis (L), dorsalis pedis (R), posterior tibialis (L), posterior tibialis (R) - Labs CBC & BMP: 07/06/18 04:25 06/29/18 13:37 Labs: Orthopedic Labs 07/06/18 07/05/18 06/29/18 04:25 06:50 13:38 POC PT 13.0 PT 16.8 H 27.1 H POC INR 1.1 INR 1.4 H 2.5 H 07/06/18 06/29/18 04:25 13:38 Hgb 12.2 14.9 Hct 36.2 44.4 Assessment and Plan (1) Hip osteoarthritis POD #1 s/p right MARILYN: -d/c planning to home tomorrow 07/07/18 -WBAT -dermabond protocol -f/u in office 10-14 days for PO Status: Acute
--- NOTE | 2018-07-06 07:35 | Discharge Summary ---
Ortho Discharge - MARILYN - Patient Instructions Diet: Regular Diet, Cardiac Activity: weight bearing as tolerated Total Hip Protocol: Follow activity instructions as provided by Physical Therapy. Dressing Care: May shower in 2 days, Other (dermabond protocol) Patient Education: Total Hip Replacement (DC) - Problem Maintenance (1) Hip osteoarthritis Status: Acute - Follow Up Plan Follow Up Appointments: Afua Fernandez PA-C [Physician Database Technician] - 07/20/18 8:40 am Disposition: Home, Self-Care Prognosis: Fair Rehab Potential: Fair I certify that the patient requires SNF services: No Overall status at discharge: patient is progressing back to baseline - Orders For Discharge Prescriptions: HYDROcodone/APAP 10/325MG [Sturgeon 10-325Mg] 1 - 2 tab PO Q4HP PRN #60 tab PRN Reason: Pain Level 3-6 Methocarbamol [Robaxin] 750 mg PO Q8HP PRN #60 tab PRN Reason: Muscle Spasm Additional Discharge Orders: Physical Therapy at Discharge - MARILYN Location: None Selected Walker Location: None Selected
[2018-07-06] MEDS ORDERED: WARFARIN 7.5 MG TABLET PO ONE ×2 (14:00)
[2018-07-06] MEDS: amLODIPine 10 MG TABLET PO SCH (21:15)
[2018-07-06] MEDS: OLMESARTAN MEDOXOMIL 20 MG TABLET PO SCH (21:15)
[2018-07-06] MEDS: HYDROCHLOROTHIAZIDE 25 MG TABLET PO SCH (21:16)
[2018-07-06] MEDS: SENNOSIDES 1 TABLET PO SCH (21:16)
[2018-07-07] MEDS: HYDROcodone/APAP 10/325MG TABLET PO PRN ×2 (05:00→11:17)
[2018-07-07] MEDS: PROPAFENONE 150 MG TABLET PO SCH (05:46)
[2018-07-07] MEDS: 0.9 % SODIUM CHLORIDE 10 ML SYRINGE IV SCH (05:46)
--- NOTE | 2018-07-07 07:14 | Orthopedic Progress Note ---
Subjective Patient information: Note initiated : 07/07/18 at 7:13 am Service Date, if different from initiated Date: [] Patient: Maria E Sidhu 67 y/o F admitted on 07/05/18 for Right Total Hip Arthroplasty. Chief Complaint: [] Interval history: doing very well. no complaints Objective Vital signs: Vital Signs Temp Pulse Resp BP BP Pulse Ox 07/07/18 06:47 99.0 F 80 12 155/77 93 07/07/18 03:38 98.2 F 73 12 126/73 93 07/06/18 23:30 98.2 F 71 12 106/58 93 07/06/18 19:48 98.2 F 76 12 128/61 96 07/06/18 16:00 97.5 F 75 18 126/62 93 07/06/18 11:46 98.5 F 75 18 116/58 96 Intake and Output 07/06/18 07/07/18 07/07/18 21:59 05:59 13:59 Intake Total 710 / 710 350 / 350 Output Total 650 / 650 600 / 600 Balance 60 / 60 -250 / -250 Intake: Oral 710 / 710 350 / 350 Output: Void Amount 650 / 650 600 / 600 Other: Meal 4 pkgs. Garaham crackers Percent of Meal Consumed 100% Feeding Ability Independent Urine Appearance Clear Clear Urine Color Dark Yellow Pale Urine Odor Normal Normal # Voids 1 Weight 196 lb Intake & Output: Intake & Output 07/06/18 07/07/18 07/07/18 21:59 05:59 13:59 Intake Total 710 / 710 350 / 350 Output Total 650 / 650 600 / 600 Balance 60 / 60 -250 / -250 Weight 196 lb Intake: Oral 710 / 710 350 / 350 Output: Void Amount 650 / 650 600 / 600 Other: Meal 4 pkgs. Garaham crackers Percent of Meal Consumed 100% Feeding Ability Independent Urine Appearance Clear Clear Urine Color Dark Yellow Pale Urine Odor Normal Normal # Voids 1 Incision: Yes healing Incision clean and dry: Yes Dressing: Yes clean, Yes dry, Yes intact Weight bearing status: full Neurological exam IM: Yes abnormal gait, Yes alert, Yes oriented X3, Yes motor sensory intact, Yes neurovascular intact Extremities exam IM: No calf tenderness, Yes Foot pink and warm, Yes neurovascular intact - Labs CBC & BMP: 07/07/18 04:25 06/29/18 13:37 Labs: Orthopedic Labs 07/07/18 07/06/18 07/05/18 04:25 04:25 06:50 POC PT 13.0 PT 22.4 H 16.8 H POC INR 1.1 INR 1.9 H 1.4 H 06/29/18 13:38 POC PT PT 27.1 H POC INR INR 2.5 H 07/07/18 07/06/18 06/29/18 04:25 04:25 13:38 Hgb 11.6 L 12.2 14.9 Hct 34.3 L 36.2 44.4 Assessment and Plan (1) Hip osteoarthritis pod 1 s/p roberto carlos wbat pain control dvt prophylaxis dc plannning Status: Acute
[2018-07-07] MEDS: MULTIVIT,THER IRON,CA,FA & MIN 1 TABLET PO SCH (11:17)
[2018-07-07] MEDS: DOCUSATE SODIUM 100 MG CAPSULE PO SCH (11:18)
[2018-07-07] MEDS ORDERED: WARFARIN 5 MG TABLET PO ONE (14:00)
== END 2018-07-07 11:30 | disposition home or self-care (01) | DRG 470 ==
LOC: MEDSUR 06:15
PROVIDERS: ADMIT Orthopaedic Surgery Sports Medicine; ATTEND Orthopaedic Surgery Sports Medicine